=== PATIENT | female | born 1995 | race Caucasian/White ===

== ENCOUNTER 2022-10-14 15:57 | Emergency (ER) | payer MEDICAID ==
[2022-10-14] MEDS ORDERED: Sodium Chloride 0.9% 1,000 ML IV ONE (17:01)
[2022-10-14 17:31] LABS: BASOPHILS PERCENT AUTO 0.2 % (0.0-1.5); EOSINOPHILS ABSOLUTE AUTO 0.1 K/uL (0.0-0.7); EOSINOPHILS PERCENT AUTO 1.6 % (0.0-7.0); HEMATOCRIT 40.6 % (36.0-46.0); HEMOGLOBIN 13.7 g/dL (12.0-16.0); LYMPHOCYTES ABSOLUTE AUTO 1.9 K/uL (0.6-2.4); LYMPHOCYTES PERCENT AUTO 21.9 % (16.0-40.0); MEAN CORPUSCULAR HEMOGLOBIN 30.9 pg (27.0-32.0); MEAN CORPUSCULAR HGB CONC 33.7 g/dL (31.0-37.0); MEAN CORPUSCULAR VOLUME 91.6 fL (80.0-98.0); MONOCYTES ABSOLUTE AUTO 0.5 K/uL (0.0-0.8); MONOCYTES PERCENT AUTO 5.5 % (0.0-15.0); NEUTROPHILS ABSOLUTE AUTO 6.2 K/uL (1.4-5.7); NEUTROPHILS PERCENT AUTO 70.8 % (48.0-80.0); NRBC ABSOLUTE 0 K/uL; PLATELET COUNT,PLT 291 K/uL (150-400); RED BLOOD CELL COUNT 4.43 M/uL (4.30-5.90)
[2022-10-14 18:06] LABS: A/G RATIO 0.9 (0.9-1.6); ALBUMIN 3.9 g/dL (3.4-5.0); BILIRUBIN TOTAL 1.9 mg/dL (0.2-1.0); CALCIUM 9.5 mg/dL (8.5-10.1); CARBON DIOXIDE,CO2 26.4 mmol/L (21.0-32.0); CREATININE 0.7 mg/dL (0.6-1.0); EST CRCL DRUG DOSING (CG) 105.17 mL/min; POTASSIUM,K 3.9 mmol/L (3.5-5.1); PROTEIN TOTAL,TP 8.3 g/dL (6.4-8.2)
[2022-10-14 18:11] LABS: APPEARANCE,URINE SLT CLOUDY; BILIRUBIN,URINE NEGATIVE (NEGATIVE); COLOR,URINE YELLOW; GLUCOSE,URINE NEGATIVE (NEGATIVE); KETONES,URINE TRACE mg/dL (NEGATIVE); LEUKOCYTE ESTERASE,URINE MODERATE (NEGATIVE); NITRITE,URINE NEGATIVE (NEGATIVE); OCCULT BLOOD,URINE MODERATE (NEGATIVE); PROTEIN,URINE NEGATIVE (NEGATIVE); UROBILINOGEN,URINE 0.2 EU/dL (<2.0)
[2022-10-14 18:38] LABS: BACTERIA,URINE 1+ (NEGATIVE); EPITHELIAL CELLS,URINE MODERATE (NONE-FEW); MUCUS,URINE LIGHT (NONE-MOD); RENAL EPITHELIAL CELLS,URINE RARE; WBC,URINE 25-28 (0-5/HPF)
[2022-10-14] MEDS ORDERED: cefTRIAXone 1 GM in Sodium Chloride 0.9% 50 ML IV ONE (18:42)
[2022-10-14] MEDS ORDERED: Phenazopyridine 200 MG Tab PO ONE (20:12)
== END 2022-10-14 20:30 | disposition home or self-care (01) ==
LOC: MW.ED 15:57
DX: N12 Tubulo-interstitial nephritis, not specified as acute or chronic (principal); Z88.8 Allergy status to other drugs, medicaments and biological substances
CPT/HCPCS: 36415; 74176; 80053; 81001; 83690; 84703; 85025; 87077; 87086; 96361; 96365; 99284; A9270; J0696; J3490; J7030; 99283